=== PATIENT | female | born 1990 | race Caucasian/White ===

== ENCOUNTER 2017-01-11 23:46 | Observation (INO) | payer BC | END 2017-01-12 08:45 | disposition home or self-care (01) | LOC: GENOP 23:46 → OB 01-12 00:15 | PROVIDERS: ADMIT Obstetrics & Gynecology | DX: O47.1 False labor at or after 37 completed weeks of gestation (principal); Z3A.39 39 weeks gestation of pregnancy; Z88.0 Allergy status to penicillin; Z88.8 Allergy status to other drugs, medicaments and biological substances; Z79.899 Other long term (current) drug therapy | CPT/HCPCS: G0378; G0463 ==

== ENCOUNTER 2017-01-16 05:38 | Inpatient (IN) | payer BC ==
[~2017-01-16] VITALS: Ht 152.4 cm; Wt 77.6 kg
[2017-01-16 06:22] LABS: HEMOGLOBIN 12.2 gm/dl (12.3-15.3); RED BLOOD COUNT 3.98 M/UL (4.00-5.10); WHITE BLOOD COUNT 10.1 K/UL (4.5-11.0)
[2017-01-17 02:46] LABS: HEMOGLOBIN 10.8 gm/dl (12.3-15.3)
[2017-01-18] MEDS ORDERED: COLACE 100MG C100 MG PO (10:29)
== END 2017-01-18 11:51 | disposition home or self-care (01) | DRG 775 ==
LOC: OB 05:38
PROVIDERS: ADMIT Obstetrics & Gynecology
PROC: 10E0XZZ Delivery of Products of Conception, External Approach (ICD-10-PCS; principal; 2017-01-16)
PROC: 10907ZC Drainage of Amniotic Fluid, Therapeutic from Products of Conception, Via Natural or Artificial Opening (ICD-10-PCS; 2017-01-16)
PROC: 0HQ9XZZ Repair Perineum Skin, External Approach (ICD-10-PCS; 2017-01-16)
DX: O48.0 Post-term pregnancy (principal); O75.89 Other specified complications of labor and delivery; J45.909 Unspecified asthma, uncomplicated; G40.909 Epilepsy, unspecified, not intractable, without status epilepticus; O71.82 Other specified trauma to perineum and vulva; Z3A.40 40 weeks gestation of pregnancy; Z37.0 Single live birth; Z88.1 Allergy status to other antibiotic agents; Z88.0 Allergy status to penicillin; Z83.49 Family history of other endocrine, nutritional and metabolic diseases; Z82.5 Family history of asthma and other chronic lower respiratory diseases; Z81.8 Family history of other mental and behavioral disorders; Z83.3 Family history of diabetes mellitus; Z82.49 Family history of ischemic heart disease and other diseases of the circulatory system; Z28.09 Immunization not carried out because of other contraindication
CPT/HCPCS: 36415; 36600; 51702; 81001; 82800; 85014; 85018; 85025; J2590; J2795; J7120

== ENCOUNTER 2021-09-29 10:57 | Outpatient (CLI) | payer BC ==
[~2021-09-29 10:57] MED LIST: COLACE 100MG C100 MG PO
== END 2021-09-29 13:47 | disposition home or self-care (01) ==
LOC: GENOP 10:57
DX: O42.913 Preterm premature rupture of membranes, unspecified as to length of time between rupture and onset of labor, third trimester (principal); O47.1 False labor at or after 37 completed weeks of gestation; Z3A.38 38 weeks gestation of pregnancy
CPT/HCPCS: 81001; 83518; G0463

== ENCOUNTER 2021-10-04 06:00 | Inpatient (IN) | payer BC ==
[~2021-10-04] VITALS: Ht 177.8 cm; Wt 85.3 kg
[2021-10-04] MEDS ORDERED: PRENATAL VITAM1 EAC3 PO (07:05)
[2021-10-04] MEDS ORDERED: FOLIC ACID 1 MG1 MG PO (07:05)
[2021-10-04 08:08] LABS: HEMOGLOBIN 11.4 gm/dl (12.3-15.3); RED BLOOD COUNT 3.99 M/UL (4.00-5.10); WHITE BLOOD COUNT 12.4 K/UL (4.5-11.0)
[2021-10-04] MEDS ORDERED: IBUPROFEN600 MG PO (11:02)
[2021-10-04] MEDS ORDERED: DOCUSATE SODIU100 MG PO (11:02)
[2021-10-05 07:29] LABS: HEMOGLOBIN 10.4 gm/dl (12.3-15.3)
== END 2021-10-05 16:02 | disposition home or self-care (01) | DRG 806 ==
LOC: OB 06:00
PROVIDERS: ADMIT Obstetrics & Gynecology
PROC: 10E0XZZ Delivery of Products of Conception, External Approach (ICD-10-PCS; principal; 2021-10-04)
PROC: 10907ZC Drainage of Amniotic Fluid, Therapeutic from Products of Conception, Via Natural or Artificial Opening (ICD-10-PCS; 2021-10-04)
PROC: 4A1HXCZ Monitoring of Products of Conception, Cardiac Rate, External Approach (ICD-10-PCS; 2021-10-04)
PROC: 3E033VJ Introduction of Other Hormone into Peripheral Vein, Percutaneous Approach (ICD-10-PCS; 2021-10-04)
DX: O99.62 Diseases of the digestive system complicating childbirth (principal); K50.90 Crohn's disease, unspecified, without complications; Z37.0 Single live birth; Z20.822 Contact with and (suspected) exposure to COVID-19; O99.344 Other mental disorders complicating childbirth; Z88.0 Allergy status to penicillin; Z3A.39 39 weeks gestation of pregnancy; F32.A Depression, unspecified; O99.354 Diseases of the nervous system complicating childbirth; O70.1 Second degree perineal laceration during delivery
CPT/HCPCS: 36415; 81001; 82800; 85014; 85018; 85025; 90471; 90715; J2405; J2590; J7120; U0002